=== PATIENT | male | born 1975 | race Caucasian/White ===

== ENCOUNTER 2023-08-30 10:12 | Emergency (ER) | payer SELFPAY ==
[~2023-08-30] VITALS: Ht 160 cm; Wt 92.5 kg
[2023-08-30 10:22] VITALS: BP_SYST 152; PULSE 85; RESP 22; TEMP 98.3; O2SAT 98
[2023-08-30 10:36] VITALS: BP_SYST 142; PULSE 85; RESP 22; TEMP 98.3; O2SAT 98
== END 2023-08-30 10:36 ==
LOC: SED 10:12
DX: Z02.89 Encounter for other administrative examinations (principal); Z79.899 Other long term (current) drug therapy
CPT/HCPCS: 99283